=== PATIENT | female | born 1995 | race Caucasian/White ===

== ENCOUNTER 2017-03-12 20:33 | Emergency (ER) | payer SELFPAY ==
[~2017-03-12] VITALS: Ht 170.2 cm; Wt 69.5 kg
[2017-03-12 20:42] VITALS: Ht 170.2 cm; Wt 69.5 kg
--- NOTE | 2017-03-12 23:01 | ERD ---
ER Documentation Chief Complaint Date/Time DATE: 03/12/17 TIME: 22:56 Chief Complaint left 2nd finger laceration while cutting food x 1 hour ago HPI 21-year-old female presented emergency department for a laceration to her left index finger that had happened at around 7:30 PM today. Stated it happened while she was cutting a food on occasion. Stated that the knife she used was clean and nor kat. Patient's complaint, patient's history about her complaint , my physical findings, diagnostic test results, my reevaluation, I consistent with final diagnosis of left index finger injury/laceration with laceration repair. Denies headache, loss of consciousness, dizziness, blurry vision, changes in vision, photophobia, facial pain, ear pain, throat pain, difficulty swallowing, neck pain, shoulder pain, chest pain, cough, hemoptysis, abdominal pain, back pain, loss of appetite, nausea, vomiting, hematochezia, diarrhea, constipation, urinary symptoms, , the possibility of being , bladder and bowel incontinences, extremity weakness, extremity tenderness, numbness or tingling sensation, difficulty walking, recent travel, recent exposure to illness, recent antibiotic use in the last 3 months, fever, chills. Last tetanus shot was 2 years ago. No known drug allergies. No past medical history. Surgical history of left ankle surgery, left knee surgery. Does not take any prescription medication at home. Social history: Student. Right-handed. Occasional drinks alcoholic beverages. Denies smoking, use of illegal drugs. ROS All systems reviewed and are negative except as per history of present illness. Medications Home Meds Active Scripts Cephalexin* (Keflex*) 500 Mg Capsule, 500 MG PO BID for 5 Days, CAP Prov:GLENDY QUAN F 03/13/17 Allergies Allergies: Coded Allergies: No Known Drug Allergies (Verified Allergy, Unknown, 03/12/17) Physical Exam Vitals Vital Signs Date Time Temp Pulse Resp B/P Pulse Ox O2 Delivery O2 Flow Rate FiO2 03/13/17 00:41 98.7 54 20 118/80 100 Room Air 03/12/17 20:42 98.7 61 20 136/76 99 Physical Exam CONSTITUTIONAL: Well-appearing; well-nourished; in no apparent distress. HEAD: Normocephalic; atraumatic. EYES: Conjunctiva clear, sclera non-icteric, EOM intact. PERRL Ears: Hearing intact. EACs clear, TMs non-bulging, non-inflamed, translucent & mobile, ossicles normal appearance, No obstructions, no erythema, no discharges Nose: No obstructions. No polyps. No external lesions. Mucosa non-inflamed. No external lesions, septum and turbinates normal. No rhinorrhea. No discharges. Frontal sinus is non-tender to palpation. Maxillary sinus is non-tender to palpation. MOUTH: Moist mucous membranes, no lesion, no obstructions, no vesicles, no thrush, patent airway Throat: Uvula in midline. Right tonsil is +1 with no erythema, no exudate. Left tonsil is +1 with no erythema, no exudate. Tolerating secretions well. Good gag reflex. Patent airway. Neck: Supple, without lesions, bruits, or adenopathy. No mass. Thyroid non- enlarged and non-tender to palpation. CHEST: Symmetrical chest. Respirations even and not labored. No retractions noted. CARDIOVASCULAR: Normal S1, S2. RRR. No murmurs, gallops. RESPIRATORY: Normal chest excursion with respiration; breath sounds clear and equal bilaterally; no wheezes, rhonchi, or rales. Breathing even and unlabored. Speaking in clear, full, and complete sentences w/ ease. ABDOMEN: Normal bowel sounds normal. Soft, round, non-distended, non-guarding, no tenderness, no rebound, no organomegaly, no masses, no pulsating abdominal mass. No hernia. No peritoneal signs. : No CVA tenderness. BACK: Symmetrical shoulder. Spine is midline without deformity, tenderness. No evidence of trauma or deformity. PELVIS: Stable pelvis. No evidence of trauma or deformity. MUSCULOSKELETAL: Normal gait and station. No misalignment, asymmetry, crepitation, defects, tenderness, masses, effusions, decreased range of motion, instability, atrophy or abnormal strength or tone in the head, neck, spine, ribs , pelvis or extremities. No calf tenderness. Left index finger laceration on proximal phalanx dorsal area measuring approximately 1-2 cm in length. Bone not visualized. Tendon not visualized. Good and full range of motion of left hand/fingers with good flexion and extension with a score of 5/5. No signs or evidence of tendon injury. Left elbow/shoulder is unremarkable. Right upper extremities unremarkable. Circulation is intact. No neurovascular deficits. NEUROVASCULAR: Distal pulses are present. Pedal pulse are present, equal, and normal. Capillary refills are < 2 seconds. NEUROLOGIC: Alert and oriented x4. Speaks full and clear sentences. Cranial Nerves II-XII normal. Sensation to pain, touch, and proprioception normal. Grossly unremarkable. No neurologic deficits. Romberg test is negative. PSYCHOLOGICAL: The patients mood and manner are appropriate. No hallucinations , delusions. Not SI. Not HI. Has the capacity to decide for self SKIN: Normal for age and ethnicity; warm; dry; good turgor; no apparent lesions or exudates. No rashes, hives, discoloration. Please see musculoskeletal assessment. Results 24 hrs Current Medications Medications (Trade) Dose Ordered Sig/Parrish Route PRN Reason Start Time Stop Time Status Last Admin Dose Admin Lidocaine (Xylocaine 1% (Mdv) 20 ml) 20 ml ONCE ONCE SC 03/12/17 23:30 03/12/17 23:31 DC Procedures/MDM Examination: Please see physical examination. Disease process, medical treatment was explained to the patient and family member. They verbalized understanding and agreed with the diagnostic tests, medical treatment, and follow-up care. Radiology: No fracture. No foreign body. POC urine : Negative Treatment: Betadine. No foreign bodies found. Tendon not visualized. Laceration repair Betadine. Lidocaine 1% 4 cc subcu. Copious/pressure irrigation with saline and Betadine. No foreign bodies found. Tendon is not visualized. Bone not visualized. Ethilon 4-0 7 sutures (simple and interrupted). No signs of tendon injury. Good and full function of extension and flexion of left second/ index finger/third or middle finger/fourth or ring finger/fifth pinky finger/ thumb with a score of 5/5. Circulation and sensation is intact. Bleeding controlled. No neurovascular deficits. Re-evaluation: Denies headache, dizziness, blurry vision, neck pain, shoulder pain, chest pain, back pain, abdominal pain. No episode of emesis or emergency department. No neurovascular deficits. No neurological deficits. No active bleeding. Patient stated that she feels much better at this time. Consultation: None. Differential diagnosis: Fracture versus laceration versus punctured wound versus foreign body Medical decision makin-year-old female presented emergency department for a laceration to her left index finger that had happened at around 7:30 PM today. Stated it happened while she was cutting a food on occasion. Stated that the ninth she used was clean and no resting. Patient's complaint, patient's history about her complaint, my physical findings, diagnostic test results, my reevaluation, I consistent with final diagnosis of left index finger injury/ laceration with laceration repair. Medications prescribed are the following: Keflex. Physical examination: Left index finger laceration on proximal phalanx dorsal area measuring approximately 1-2 cm in length. Bone not visualized. Tendon not visualized. Good and full range of motion of left hand/fingers with good flexion and extension with a score of 5/5. No signs or evidence of tendon injury. Circulation is intact. No neurovascular deficits. Patient and family member are made aware of the side effects and adverse reactions of the medications prescribed. Instructed on when to seek emergent and medical attention in case allergic/anaphylactic reactions or severe side effects and or adverse reactions to medications. Patient and family member verbalized understanding. Patient instructed Instructed to follow-up with his PCP in 24-48 hours. Come back in 2 days for a wound check. Come back in 7-10 days for a suture removal. Instructed to Call 911 for chest pain, shortness of breath. Advised to come back here in ED as soon as possible for severity of symptoms which includes but not limited to: any new symptoms; shortness of breath/difficulty of breathing; cardiovascular changes; severe gastrointestinal symptoms; signs and symptoms of bleeding and or infection; signs of compartment syndrome/neurovascular changes; neurological changes/deficits. Patient and family member verbalized understanding. Upon discharge, patient is alert and oriented x 4, speaks full and clear sentences, denies pain, has no neurological deficits, has no neurovascular deficits, difficulty of breathing. Breathing even and unlabored. Lung sounds are clear to auscultation. Not in distress. Appears comfortable. Ambulatory with steady gait. Appears satisfied with care provided here in ED. Departure Diagnosis: Primary Impression: Laceration Condition: Stable Additional Instructions: Patient instructed Instructed to follow-up with his PCP in 24-48 hours. Come back in 2 days for a wound check. Come back in 7-10 days for a suture removal. Instructed to Call 911 for chest pain, shortness of breath. Advised to come back here in ED as soon as possible for severity of symptoms which includes but not limited to: any new symptoms; shortness of breath/difficulty of breathing; cardiovascular changes; severe gastrointestinal symptoms; signs and symptoms of bleeding and or infection; signs of compartment syndrome/neurovascular changes; neurological changes/deficits. Patient and family member verbalized understanding. GLENDY QUAN March 12, 2017 23:01
[2017-03-12] MEDS ORDERED: LIDOCAINE 1% (MDV) 20 ML INJ SC ONE (23:30)
[2017-03-13] MEDS ORDERED: CEPH-443 PO (00:23)
--- NOTE | 2017-03-13 00:27 | RADRPT ---
PROCEDURE: Left hand. CLINICAL INDICATION: Pain. TECHNIQUE: Three views including PA, lateral and oblique views of the left hand were obtained. COMPARISON: None. FINDINGS: There is no fracture, dislocation or bone destruction. The joint spaces are within normal limits. Bone mineralization is within normal limits. There is no radiopaque foreign body or abnormal calcif ication. There is a laceration of the second finger. IMPRESSION: No evidence of fracture. Laceration of the second finger. .Pradeep Cody MD, Date Time Electronically viewed and signed by .Pradeep Cody MD, on 03/13/2017 00:27 .T/
[2017-03-13 00:41] VITALS: BP 118/80; PULSE 54; RESP 20; TEMP 98.7
== END 2017-03-13 00:42 | disposition home or self-care (01) ==
LOC: FTE 20:33
DX: S61.211A Laceration without foreign body of left index finger without damage to nail, initial encounter (principal); W26.0XXA Contact with knife, initial encounter; Y92.9 Unspecified place or not applicable

== ENCOUNTER 2017-03-15 07:45 | Emergency (ER) | payer SELFPAY ==
[~2017-03-15] VITALS: Wt 69.0 kg
[~2017-03-15 07:45] MED LIST: CEPH-443 PO
--- NOTE | 2017-03-15 08:18 | ERD ---
ER Documentation Chief Complaint Date/Time DATE: 03/15/17 TIME: 08:16 Chief Complaint left index finger lac recheck HPI 21-year-old female comes emergency department with a left index finger wound recheck from 2 days ago. Patient states that the cut occurred while using a kitchen knife, and the proximal aspect of the finger. She has no weakness, paresthesias. She denies any drainage or redness. Patient's last tetanus shot was 2 years ago. ROS All systems reviewed and are negative except as per history of present illness. Medications Home Meds Active Scripts Cephalexin* (Keflex*) 500 Mg Capsule, 500 MG PO BID for 5 Days, CAP Prov:MARIA EUGENIABANEDUARDOAR F 03/13/17 Allergies Allergies: Coded Allergies: No Known Drug Allergies (Verified Allergy, Unknown, 03/12/17) PMhx/Soc History of Surgery: Yes (ankle and knee sx unspecified) Anesthesia Reaction: No Hx Neurological Disorder: No Hx Respiratory Disorders: No Hx Cardiac Disorders: No Hx Psychiatric Problems: No Hx Miscellaneous Medical Probl: No Hx Alcohol Use: No Hx Substance Use: No Hx Tobacco Use: No Physical Exam Vitals Vital Signs Date Time Temp Pulse Resp B/P Pulse Ox O2 Delivery O2 Flow Rate FiO2 03/15/17 07:49 98.0 59 18 122/77 99 Physical Exam General: Well-developed, well-nourished. The patient appears in no acute distress. HEENT: Head is normocephalic, atraumatic. No scleral icterus. Neck: Supple. Nontender. Lungs: Clear to auscultation. Normal air movement. Heart: Regular rate and rhythm. S1 and S2 are normal. No murmurs, gallops, or rubs. Abdomen: Nondistended. Extremities: No clubbing or cyanosis. Moving extremities x 4. No weakness. Neurologic: Alert and oriented 3. No focal deficits. Normal speech and gait. Skin: 7 simple interrupted sutures that are intact at the proximal phalanx of the left index finger, there is no dehiscence, erythema or warmth. She is full range of motion at the DIP, PIP and MCP joint, capillary refill less than 2 seconds and sensation distally intact. Procedures/MDM ED course: The laceration was redressed. Wound shows no evidence of infection, foreign body, neurologic injury, vascular injury, open joint or tendon laceration. Patient appropriate for outpatient follow up. Departure Diagnosis: Primary Impression: Encounter for re-check of laceration wound Condition: Good Patient Instructions: Wound Check, Lac F/U (No Infection) Additional Instructions: Suture removal in 5-7 days. Return sooner for any worsening or new symptoms. DICK CABRERA PA-C March 15, 2017 08:18
== END 2017-03-15 08:21 | disposition home or self-care (01) ==
LOC: FTE 07:45
DX: Z48.01 Encounter for change or removal of surgical wound dressing (principal)
CPT/HCPCS: 99281

== ENCOUNTER 2017-03-22 11:11 | Emergency (ER) | payer SELFPAY ==
[~2017-03-22] VITALS: Ht 157.5 cm; Wt 69.0 kg
[2017-03-22 11:15] VITALS: Ht 157.5 cm; Wt 69.0 kg
--- NOTE | 2017-03-22 11:37 | ERD ---
ER Documentation Chief Complaint Date/Time DATE: 03/22/17 Chief Complaint Suture removal HPI The patient is a 21-year-old right-hand dominant female who presents to the Emergency Department for suture removal. The patient was initially evaluated in the Emergency Department on 03/13/2017 after sustaining a laceration to the left index finger. The patient cut the proximal aspect of her finger while using a kitchen knife to slice a bagel. During her visit to the Emergency Department, a laceration repair was performed. She was then discharged home with prescription for Keflex, which she has taken as directed. She notes that her wound appears to have healed well, with no redness, swelling, drainage, bleeding or wound dehiscence. Denies any pain at this time. Denies numbness, paresthesias or weakness of the distal extremity. Denies restricted range of motion. Tetanus status is up-to-date. ROS All systems reviewed and are negative except as per history of present illness. Medications Home Meds Active Scripts Cephalexin* (Keflex*) 500 Mg Capsule, 500 MG PO BID for 5 Days, CAP Prov:KAMRYNGLENDY BEAVER 03/13/17 Allergies Allergies: Coded Allergies: No Known Drug Allergies (Verified Allergy, Unknown, 03/12/17) PMhx/Soc History of Surgery: Yes (ankle and knee sx unspecified) Anesthesia Reaction: No Hx Neurological Disorder: No Hx Respiratory Disorders: No Hx Cardiac Disorders: No Hx Psychiatric Problems: No Hx Miscellaneous Medical Probl: No Hx Alcohol Use: No Hx Substance Use: No Hx Tobacco Use: No Physical Exam Vitals Vital Signs Date Time Temp Pulse Resp B/P Pulse Ox O2 Delivery O2 Flow Rate FiO2 03/22/17 11:15 98.2 62 20 123/74 99 Physical Exam Const: Well-developed, well-nourished, in no acute distress. Head: Atraumatic Eyes: Normal Conjunctiva ENT: Normal External Ears, Nose and Mouth. Neck: Supple. Full range of motion. Resp: Clear to auscultation bilaterally Cardio: Regular rate and rhythm, no murmurs Skin: Well-healed, well-approximated laceration to the proximal aspect of the left index finger with 7 overlying simple interrupted 4-[address] No erythema, warmth, drainage, swelling. No wound dehiscence. No bleeding. Normal range of motion at the MCP, PIP and DIP joints. No petechiae or rashes. Ext: No clubbing, cyanosis, or edema. Moving all extremities. Radial and ulnar pulses 2+. Capillary refill is less than 2 seconds. Neur: Awake and alert. Motor and sensation grossly intact. Psych: Normal Mood and Affect Procedures/MDM PROCEDURE NOTE: Suture Removal PROCEDURE: Removal of previously placed sutures DESCRIPTION OF REPAIR: The wound demonstrates no evidence of infection with adequate tensile strength at the wound margins at this time to warrant suture removal. Sutures were removed individually using scissors and forceps, with a total of 7 sutures removed. Re-examination of the wound following the procedure reveals no evidence of any retained foreign bodies and no dehiscence. The patient tolerated the procedure well without complications. Standard post- procedure care was explained and return precautions were given. MEDICAL DECISION MAKING: This is a 21-year-old female presenting to the Emergency Department for for removal of previously placed sutures to left proximal index finger. The patient had no significant acute abnormalities on physical examination, and vital signs were stable. She had good wound closure and good wound approximation, with no evidence of dehiscence. The wound is clean, dry and intact with no evidence of purulent drainage, bleeding or infection. Sutures were removed with no present complications. At this time, the patient is in stable condition and therefore can be discharged home with strict return precautions for signs of deteriorating or worsening condition, the development of any neurovascular deficits, erythema, drainage, infection, fevers, or any other concerning symptoms. The patient is instructed to follow up with their primary care provider for reevaluation and further management within 2 to 3 days, or to return to the ER sooner for any new or worsening symptoms. I shared my medical decision making and plan with the patient and they verbally understand and agree with the plan for further observation and care as an outpatient. At the time of discharge all questions were answered. Departure Diagnosis: Primary Impression: Encounter for removal of sutures Condition: Stable Patient Instructions: Suture Removal, No Complication Additional Instructions: Call your primary care doctor TOMORROW for an appointment during the next 2-3 days.See the doctor sooner or return here if your condition worsens before your appointment time. GISELLE WIN PA-C March 22, 2017 11:37
== END 2017-03-22 12:17 | disposition home or self-care (01) ==
LOC: FTE 11:11
DX: Z48.02 Encounter for removal of sutures (principal)
CPT/HCPCS: 99281